=== PATIENT | male | born 1945 | race Caucasian/White ===

== ENCOUNTER 2017-05-07 16:35 | Emergency (ER) | payer MEDICARE ==
[2017-05-07 18:14] LABS: Bilirubin Negative (Negative); Blood, Urine Large (Negative); Clarity CLEAR (Clear); Glucose, Urine (Dipstick) Negative (Negative); Leukocyte Trace (Negative); Nitrite Negative (Negative); Protein, Urine (Dipstick) Negative (Neg-Trace); Specific Gravity, Urine 1.011 (1.002-1.036); pH, Urine 6.5 (5.0-9.0)
[2017-05-07 18:15] LABS: Bacteria/HPF None Seen HPF (None Seen); Hyaline Casts/LPF 0-3 HYALINE CAST LPF (0-3 Hyaline); Pathc Cast-AUWi Flag 0.13 (0-2.49); RBC/HPF GREATER THAN 50-TNTC HPF (0-3); Squamous Epithelial 0-3 HPF (0-3); WBC/HPF 0-3 HPF (0-3)
[2017-05-07 18:41] LABS: #Eosinphils 0.1 thou/uL (0.0-0.7); #Lymphocytes 1.6 thou/uL (1.20-3.40); #Monocytes 0.8 thou/uL (0.11-0.59); #Neutrophils 9.6 thou/uL (1.40-6.50); %Basophils 0.4 % (0.0-1.0); %Eosinophils 0.8 % (0.0-10.0); %Lymphocytes 13.3 % (21.0-51.0); %Monocytes 6.9 % (0.0-10.0); %Neutrophils 78.6 % (42.0-75.0); Hemoglobin 15.9 g/dL (14.0-18.0); Mean Corpuscular HGB CONC 34.4 g/dL (32.0-36.0); Mean Corpuscular Hemoglobin 32.9 pg (27.0-31.0); Mean Corpuscular Volume 95.5 fl (80.0-94.0); Platelet Count 230 thou/uL (130-400); RBC Distribution Width 11.9 % (11.5-14.5); Red Blood Cell (RBC) Count 4.83 mill/uL (4.70-6.10); White Blood Cell (WBC) Count 12.3 thou/uL (4.8-10.8)
[2017-05-07 19:02] LABS: ALT (SGPT) 31 U/L (8-55); AST (SGOT) 25 U/L (5-34); Albumin 4.4 g/dL (3.4-4.8); Alkaline Phosphatase 61 U/L (40-150); Anion Gap 12 mmol/L (10-20); BUN (Urea Nitrogen) 18 mg/dL (8.4-25.7); Bilirubin, Total 0.3 mg/dL (0.2-1.2); Calc. Creatinine Clearance 0 mL/min (70-130); Carbon Dioxide 28 mmol/L (23-31); Chloride 104 mmol/L (98-107); Estimated GFR-MDRD 85; Globulin 3.1 g/dL (2.4-3.5); Glucose 96 mg/dL (80-115); Lipase 19 U/L (8-78); Potassium 4.5 mmol/L (3.5-5.1); Protein, Total 7.5 g/dL (5.8-8.1); Sodium 139 mmol/L (136-145)
--- NOTE | 2017-05-07 20:46 | ULT ---
SCROTAL ULTRASOUND WITH DOPPLER 05/07/17 PROVIDED CLINICAL HISTORY: Right groin pain. FINDINGS: The right testicle measures about 2.8 x 4.7 x 2.7 cm. There is cystic dilatation of the rete testis a s well as simple appearing intratesticular cyst measuring about 6 mm. The right testicle demonstrates an otherwise unremarkable ramirez scale sonographic appearance. Left testicle measures about 2 x 4.9 x 2.4 cm and appears sonographically unremarkable. The epididymi demonstrate no significant abnormality. Color doppler and spectral analysis of the testicular waveforms reveal normal flow bilaterally. No ev idence for hydrocele or varicocele. IMPRESSION: Normal flow is demonstrated to each testicle. POS: [facility]
--- NOTE | 2017-05-07 22:30 | CT ---
CT OF THE ABDOMEN AND PELVIS 05/07/17 PROVIDED CLINICAL HISTORY: Right flank pain. FINDINGS: The visualized lung bases are free of significant opacity. There is a 7 to 8 mm nonobstructing right renal calculus. There is a 4 mm right UVJ/bladder calculus without significant obstructive change. No additional urinary tract calculi are evident. The solid abdominal organs are suboptimally evaluated without IV contrast but demonstrate an otherwise unremarkable unenhanced CT appearance. There is no bowel dilatation, inflammatory fat stranding, free fluid or lymph node enlargement appare nt. Scattered atherosclerotic vascular calcifications are seen. The osseous structures demonstrate no concerning osteoblastic or osteolytic lesions. IMPRESSION: 1. 4 mm right UVJ/urinary bladder calculus without significant obstruction. 2. Right renal calculus. POS: [facility]
== END 2017-05-07 23:59 | disposition home or self-care (01) ==
LOC: ERS 16:35
DX: N20.0 Calculus of kidney (principal); I10 Essential (primary) hypertension
CPT/HCPCS: 36415; 74176; 76870; 80053; 81003; 81015; 83690; 85025; 93976

== ENCOUNTER 2019-10-03 07:58 | Outpatient (CLI) | payer MEDICARE ==
--- NOTE | 2019-10-03 10:05 | MRI ---
MRI brain with and without contrast: DATE: 10/03/2019 HISTORY: 74-year-old male with headache and memory loss TECHNIQUE: Multiplanar, multisequence MRI of the brain obtained pre and post IV injection of gadolinium based co ntrast agent. FINDINGS: There is no obstructive hydrocephalus. There is no midline shift or any other evidence of mass effect . There is no extra-axial fluid collection. There are mild chronic ischemic white matter changes due to microvascular atherosclerosis. There is otherwise no major intra-axial signal abnormality, abn ormal enhancement, mass, recent hemorrhage, or restricted diffusion. IMPRESSION: 1) mild chronic ischemic white matter changes, not unusual for age 74 years. 2) otherwise negative
[2019-10-03] MEDS ORDERED: Magnevist 469MG/ML 20 ML VIAL ONE (14:03)
== END 2019-10-03 07:59 | disposition home or self-care (01) ==
LOC: BICMRI 07:58
PROVIDERS: ATTEND Family Medicine
DX: R41.3 Other amnesia (principal); R51 Headache; I67.82 Cerebral ischemia
CPT/HCPCS: 70553; 82565; A9579

== ENCOUNTER 2021-08-26 10:56 | Outpatient (CLI) | payer MEDICARE ==
[~2021-08-26 10:56] MED LIST: Iopamidol-370 76% 500 ML 1 ML ONE
== END 2021-08-26 10:57 | disposition home or self-care (01) ==
LOC: BICCT 10:56
PROVIDERS: ATTEND Urology
DX: R31.0 Gross hematuria (principal); N20.0 Calculus of kidney; N32.89 Other specified disorders of bladder
CPT/HCPCS: 74178; 82565; Q9967

== ENCOUNTER 2022-07-03 17:30 | Outpatient (CLI) | payer MEDICARE | END 2022-07-03 17:31 | disposition home or self-care (01) | LOC: SLEEPLAB 17:30 | PROVIDERS: ATTEND Internal Medicine | DX: G47.33 Obstructive sleep apnea (adult) (pediatric) (principal); R06.83 Snoring; R09.02 Hypoxemia | CPT/HCPCS: 95800 ==

== ENCOUNTER 2022-12-05 09:03 | Outpatient (CLI) | payer MEDICARE | END 2022-12-05 09:04 | disposition home or self-care (01) | LOC: BICCT 09:03 | PROVIDERS: ATTEND Internal Medicine | DX: Z12.2 Encounter for screening for malignant neoplasm of respiratory organs (principal); J44.9 Chronic obstructive pulmonary disease, unspecified; I25.10 Atherosclerotic heart disease of native coronary artery without angina pectoris; J43.2 Centrilobular emphysema; Z87.891 Personal history of nicotine dependence | CPT/HCPCS: 71271 ==

== ENCOUNTER 2023-06-19 06:52 | Day surgery (SDC) | payer MEDICARE ==
[2023-06-11 12:03] VITALS: BMI 31.1
[2023-06-19] MEDS ORDERED: Rocuronium Bromide 10 MG/ML (10ML VIAL) ONE (08:04)
[2023-06-19] MEDS ORDERED: PROPOFOL 20 ML ONE (08:04)
[2023-06-19] MEDS ORDERED: fentaNYL PF 100 MCG/2 ML SYRINGE ONE ×2 (08:04→12:31)
[2023-06-19] MEDS ORDERED: Lidocaine 1% PF 5 ML VIAL ONE (08:04)
[2023-06-19] MEDS ORDERED: LevoFLOXacin D5W 500 mg (100 mL) BAG ONE (08:20)
[2023-06-19] MEDS ORDERED: Ketorolac Tromethamine 30 MG (1 mL) VIAL ONE (10:42)
[2023-06-19] MEDS ORDERED: Ondansetron PF 4 MG/2 ML Vial ONE (10:42)
[2023-06-19] MEDS ORDERED: Dexamethasone 20 MG/5 ML VIAL ONE (10:42)
[2023-06-19] MEDS ORDERED: PACU-Morphine 4MG/ML VIAL SLOW IVP PRN (10:53)
[2023-06-19] MEDS ORDERED: Morphine Sulfate 2 MG/ML SYRINGE SLOW IVP PRN (10:53)
[2023-06-19] MEDS ORDERED: HYDROmorphone 2 MG/ML VIAL SLOW IVP PRN (10:53)
[2023-06-19] MEDS ORDERED: Ondansetron HCl/PF 4 MG/2 ML Vial IVP PRN (10:53)
[2023-06-19] MEDS ORDERED: Promethazine HCl 25 MG/ML VIAL IM PRN (10:53)
[2023-06-19] MEDS ORDERED: NEOSTIGMINE 3 MG/3 ML SYR 3 MG/3 ML SYRINGE ONE ×2 (10:59→11:00)
[2023-06-19] MEDS ORDERED: Glycopyrrolate 0.2 MG/ML 5 ML SYRINGE ONE (10:59)
[2023-06-19] MEDS ORDERED: Phenazopyridine HCl 100 MG TAB ONE (11:40)
[2023-06-19] MEDS ORDERED: Oxybutynin 5 MG TAB ONE (11:40)
[2023-06-19] MEDS ORDERED: fentaNYL 50 mcg/mL 1 mL Vial ONE ×2 (11:41→11:55)
[2023-06-19] MEDS ORDERED: HYDROcodone/Acetaminophen 5/325 mg Tablet ONE (14:01)
== END 2023-06-19 16:29 | disposition home or self-care (01) ==
LOC: SDC 06:52
PROVIDERS: ATTEND Urology
PROC: 0TC78ZZ Extirpation of Matter from Left Ureter, Via Natural or Artificial Opening Endoscopic (ICD-10-PCS; principal; 2023-06-19)
PROC: 0T778DZ Dilation of Left Ureter with Intraluminal Device, Via Natural or Artificial Opening Endoscopic (ICD-10-PCS; 2023-06-19)
DX: N20.0 Calculus of kidney (principal); E78.5 Hyperlipidemia, unspecified; I10 Essential (primary) hypertension; N50.811 Right testicular pain; N40.1 Benign prostatic hyperplasia with lower urinary tract symptoms; R31.0 Gross hematuria; M16.0 Bilateral primary osteoarthritis of hip; N13.8 Other obstructive and reflux uropathy; N50.812 Left testicular pain; Z98.890 Other specified postprocedural states; Z87.891 Personal history of nicotine dependence; Z79.899 Other long term (current) drug therapy; Z79.51 Long term (current) use of inhaled steroids
CPT/HCPCS: 52356; 82365; C1713; C1747; C1769; C2617; J3010; 88300; J1100; J1885; J1956; J2405; J2704

== ENCOUNTER 2023-09-25 13:03 | Outpatient (CLI) | payer MEDICARE | END 2023-09-25 13:04 | disposition home or self-care (01) | LOC: BICULT 13:03 | PROVIDERS: ATTEND Urology | DX: N20.0 Calculus of kidney (principal) | CPT/HCPCS: 76770 ==

== ENCOUNTER 2024-03-30 18:58 | Emergency (ER) | payer MEDICARE ==
[2024-03-30 19:48] LABS: #Basophils 0.05 10x3/uL (0.0-0.2); %Basophils 0.8 % (0.0-1.0); %Eosinophils 2.9 % (0.0-10.0); %Lymphocytes 25.1 % (21.0-51.0); %Monocytes 8.4 % (0.0-10.0); Hemoglobin 13.5 g/dL (14.0-18.0); Mean Corpuscular HGB CONC 34.6 g/dL (32.0-36.0); Mean Corpuscular Hemoglobin 30.9 pg (27.0-31.0); Mean Corpuscular Volume 89.2 fL (78.0-98.0); Mean Platelet Volume 8.7 fL (7.4-10.4); Platelet Count 190 10x3/uL (130-400); RBC Distribution Width 13.5 % (11.5-14.5); Red Blood Cell (RBC) Count 4.37 mill/uL (4.70-6.10)
[2024-03-30 20:05] LABS: Bacteria/HPF None Seen HPF (None Seen); Bilirubin Negative (Negative); Blood, Urine Negative (Negative); CAUTI Indications for Culture Alt mental st,lethar; Clarity Clear (Clear); Glucose, Urine (Dipstick) Normal (Negative); Ketone, Urine Negative (Negative); Leukocyte Negative Leu/uL (Negative); Nitrite Negative (Negative); Protein, Urine (Dipstick) Negative (Neg-Trace); RBC/HPF 0-3 HPF (0-3); Specific Gravity, Urine 1.005 (1.002-1.036); Squamous Epithelial None Seen HPF (0-3); WBC/HPF 0-3 HPF (0-3)
[2024-03-30 20:08] LABS: Sperm/HPF Rare HPF (None Seen)
[2024-03-30 20:09] LABS: Urine Culture Reflex No No
[2024-03-30 20:10] LABS: Troponin I Less than 0.010 ng/mL (< 0.028)
[2024-03-30 20:13] LABS: ALT (SGPT) 20 U/L (8-55); AST (SGOT) 43 U/L (5-34); Albumin 3.7 g/dL (3.4-4.8); Alkaline Phosphatase 102 U/L (40-110); Anion Gap 15 mmol/L (10-20); BUN (Urea Nitrogen) 13 mg/dL (8.4-25.7); Bilirubin, Total 0.5 mg/dL (0.2-1.2); Calc. Creatinine Clearance 0 mL/min (70-130); Calcium 8.8 mg/dL (7.8-10.44); Carbon Dioxide 22 mmol/L (23-31); Chloride 106 mmol/L (98-107); Estimated GFR 89; Globulin 3.7 g/dL (2.4-3.5); Glucose 85 mg/dL (83-110); Potassium 5.1 mmol/L (3.5-5.1); Protein, Total 7.4 g/dL (5.8-8.1); Sodium 138 mmol/L (136-145)
== END 2024-03-30 22:12 | disposition home or self-care (01) ==
LOC: ERS 18:58
DX: R55 Syncope and collapse (principal); E86.0 Dehydration; I10 Essential (primary) hypertension; J44.9 Chronic obstructive pulmonary disease, unspecified
CPT/HCPCS: 71045; 80053; 81001; 84443; 84484; 85025; 93005; 96360; 96361

== ENCOUNTER 2024-12-08 13:07 | Outpatient (CLI) | payer OTHER | END 2024-12-08 13:08 | disposition home or self-care (01) | LOC: RAD 13:07 | PROVIDERS: ATTEND Internal Medicine | DX: J44.9 Chronic obstructive pulmonary disease, unspecified (principal); J96.11 Chronic respiratory failure with hypoxia | CPT/HCPCS: 71046 ==